=== PATIENT | male | born 1950 | race Caucasian/White ===

== ENCOUNTER 2016-10-11 10:42 | Observation (INO) | payer MEDICARE ==
[2016-10-11] MEDS ORDERED: METOPROLOL TART25 M1 PO (10:57)
[2016-10-11] MEDS ORDERED: ASPIRIN EC81 MG PO (10:57)
[2016-10-11] MEDS ORDERED: OMEPRAZOLE20 M3 PO (10:58)
[2016-10-11] MEDS ORDERED: BRILINTA90 M1 PO (10:58)
[2016-10-11] MEDS ORDERED: LISINOPRIL2.5 M1 PO (10:58)
[2016-10-11] MEDS ORDERED: LIPITOR40 M1 PO (10:58)
[2016-10-11 11:35] LABS: BASO % 0.4 % (0-2); EOS % 2.6 % (0-7); EOSINOPHIL ABSOLUTE COUNT 0.2 tho/cmm (0.0-0.7); HCT-HEMATOCRIT 46.2 % (36.0-53.5); HGB-HEMOGLOBIN 16.4 gm/dl (13.5-17.0); IMMATURE GRANULOCYTES ABSOLUTE 0.01 tho/cmm (0-0.03); IMMATURE GRANULOCYTES PERCENT 0.1 % (0-0.3); LYMPH % 17.3 % (20-45); LYMPH ABSOLUTE COUNT 1.4 tho/cmm (0.8-4.5); MCH (MEAN CORPUSCULAR HGB) 30.7 pg (28.0-32.0); MCHC MEAN CORPUSCULAR HGB CONC 35.5 % (32.0-36.0); MCV (MEAN CELL VOLUME) 86.5 fl (82.0-96.0); MEAN PLATELET VOLUME 8.4 cmc (9.4-12.4); MONO % 8.1 % (0-12); MONOCYTE ABSOLUTE COUNT 0.7 tho/cmm (0.0-1.2); NEUTROPHIL ABSOLUTE COUNT 5.8 tho/cmm (1.6-8.0); NEUTROPHIL-AUTOMATED 5.8 tho/cmm (1.6-8.0); NEUTROPHILS % 71.5 % (40-80); PLATELET COUNT 330 tho/cmm (150-450); RED BLOOD COUNT 5.34 mil/cmm (4.40-5.70); RED CELL DISTRIBUTION WIDTH 12.4 % (12.4-16.4); WHITE BLOOD COUNT 8.2 tho/cmm (4.0-10.0)
[2016-10-11] MEDS ORDERED: AMOXICILLIN500 M1 PO (11:43)
[2016-10-11 11:48] LABS: ANION GAP 11 mmol/L (0-20); BLOOD UREA NITROGEN 18 mg/dl (6-24); CALCIUM 9.3 mg/dl (8.5-10.5); CARBON DIOXIDE-VENOUS 24 mmol/L (22-32); CHLORIDE 106 mmol/l (96-110); CREATININE 1.13 mg/dl (0.60-1.30); GLUCOSE 120 mg/dL (70-110); POTASSIUM 4.3 mmol/L (3.7-5.1); SODIUM 137 mmol/L (135-145); eGFR VALUE FOR BLACK 78 mL/Min
[2016-10-11 15:12] LABS: CHOLESTEROL 101 mg/dl (120-200); HDL CHOLESTEROL 41 mg/dl (40-60); LDL CHOLESTEROL 40 mg/dl (0-99); TRIGLYCERIDES 102 mg/dl (<149); VLDL 20 mg/dl (0-30)
== END 2016-10-12 12:30 ==
LOC: EDMED 10:42 → EMR2 15:04 → CAR1 16:10
PROVIDERS: Emergency Medicine; ADMIT Internal Medicine Cardiovascular Disease
DX: R06.00 Dyspnea, unspecified (principal); I25.10 Atherosclerotic heart disease of native coronary artery without angina pectoris; I10 Essential (primary) hypertension; E78.5 Hyperlipidemia, unspecified; Z79.2 Long term (current) use of antibiotics; Z79.82 Long term (current) use of aspirin; Z79.899 Other long term (current) drug therapy; Z87.891 Personal history of nicotine dependence; Z90.89 Acquired absence of other organs; Z95.5 Presence of coronary angioplasty implant and graft; Z98.890 Other specified postprocedural states
CPT/HCPCS: A9500; C8929; G0378